=== PATIENT | male | born 1955 | race Caucasian/White ===

== ENCOUNTER 2018-05-22 12:15 | Emergency (ER) | payer OTHER ==
[2018-05-22 14:48] LABS: PLATELET COUNT 428 10^3/uL (150-400)
--- NOTE | 2018-05-22 14:52 | EDPHY ---
H & P Stated Complaint: dizzy, disoriented Time Seen by Provider: 05/22/18 14:00 HPI/ROS: CHIEF COMPLAINT: Dizzy, off balance HISTORY OF PRESENT ILLNESS: This is a 62-year-old male who presents with 2 days of feeling slightly dizzy/lightheaded and off balance. He noticed this yesterday and actually fell against a wall. He spoke with his caregiver at that time and was advised to come to the emergency department the chose not to do so. Today he had an appointment with his urologist, which she cap. He then came to the emergency department because of continued lightheadedness and a feeling of being slightly "fuzzy". He notices that when he is walking veers off in one direction and sometimes stumbles. No headache. No recent trauma. REVIEW OF SYSTEMS: A ten system review of systems was performed and is negative with the exception of the items mentioned in the HPI. Past medical history: 1. Back pain with history of opiate dependence now on Suboxone for the past 2 months 2. TIA (seen on MRI) 3. Possible cluster headache 4. Asthma 5. Heartburn 6. Tobacco abuse Past surgical history: 1. Hiatal hernia 2. Left inguinal hernia repair 3. Surgery and pulmonary bleb/pneumothorax 4. Left right rotator cuff repairs 5. Right knee arthroscopy 6. Ganglion cyst on hand 7. Lymph node removal Family history: Social history: History of opiate dependence not Suboxone. He smokes 1 pack cigarettes a day. He is retired. 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 General Appearance: Alert. Vital signs reviewed. Blood pressure 147/91, heart rate 111 at triage. Eyes: Pupils equal and round, no conjunctival injection, no discharge. Anicteric. ENT, Mouth: Mucous membranes are moist, no oropharyngeal erythema or edema. Neck: No lymphadenopathy, supple. Respiratory: Lungs are clear to auscultation; no wheezes, rales, or rhonchi. Cardiovascular: Regular rate and rhythm; no murmur, rub, or gallop. Gastrointestinal: Abdomen is soft and nontender, no masses or organomegaly, bowel sounds normal. Skin: Warm and dry, no rashes on exposed skin, normal color. Back: Nontender to palpation over the thoracolumbar spine. No CVAT. Extremities: No lower extremity edema, no calf tenderness or swelling. Neurological: Alert and oriented. NIHSS 3. Cranial nerves II through XII are examined and are intact (visual acuity not tested). Strength is 5 for over 5 over 5 right upper and lower extremity, 5/5 left upper and lower extremity with testing of all major motor groups. Right upper extremity drift. Sensation is intact to light touch over all 4 extremities. [id number] is performed with some past pointing on the right. Gait is somewhat unsteady with falling to the right. Sways during Romberg test. Psychiatric: Slightly flat affect. - Personal History Current Tetanus/Diphtheria Vaccine: Yes Current Tetanus Diphtheria and Acellular Pertussis (TDAP): Yes - Medical/Surgical History Hx Asthma: Yes Hx Chronic Respiratory Disease: Yes Hx Diabetes: No Hx Cardiac Disease: No Hx Renal Disease: No Hx Cirrhosis: No Hx Alcoholism: No Hx HIV/AIDS: No Hx Splenectomy or Spleen Trauma: No Other PMH: TIA, opiate abuse, - Social History Smoking Status: Heavy smoker Constitutional: Initial Vital Signs Temperature (C) 36.8 C 05/22/18 12:24 Heart Rate 111 H 05/22/18 12:24 Respiratory Rate 16 05/22/18 12:24 Blood Pressure 147/91 H 05/22/18 12:24 O2 Sat (%) 95 05/22/18 12:24 O2 Delivery Mode Room Air Allergies/Adverse Reactions: lorazepam [From Ativan] Allergy (Verified 05/22/18 12:22) Home Medications: Medication Instructions Recorded Albuterol 05/22/18 Flomax 05/22/18 Gabapentin 05/22/18 Prilosec 05/22/18 Suboxone 8 mg-2 mg SL Film 05/22/18 Medical Decision Making - Diagnostics EKG Interpretation: 12 lead EKG is interpreted in [place] by emergency department physician. No acute ischemic findings. Sinus rhythm at 95. ED Course/Re-evaluation: Patient with right upper and lower extremity weakness and gait instability. He reports a history of prior TIA. Symptoms have been present since yesterday morning (over [address] shows no evidence of acute stroke. Will proceed with MRI. I discussed the findings on the head CT with the patient. I have recommended admission, regardless of the results on the MRI scan. He was re-examined at 3: 20 p.m. and has continued ongoing right-sided weakness. NIHSS 3. He is adamant that he does not want to be hospitalized. He ultimately agreed that if the MRI showed evidence of a stroke he would stay in the hospital, but otherwise he wanted to return home. He understands that if the MRI does not explain his symptoms he is at risk of worsening with permanent neurologic deficit and even at risk of . He is capable of making his own medical decisions. I reviewed his EKG. He has negative troponin. I do not think that this is a cardiac event. His white blood cell count is very mildly elevated. I have not found evidence of an infection. Electrolytes are normal. MRI does not show evidence of acute stroke. There is some microvascular disease and sinusitis, no other abnormalities. I have reviewed the MRI findings with the patient. I have offered him hospitalization for further evaluation of his right-sided weakness. He continues to refuse hospitalization and has signed a form stating that he is leaving against medical advice. He understands that the etiology of his symptoms has not been discovered. He understands that he could worsen and even . Differential Diagnosis: Weakness including but not limited to electrolyte abnormality, depression, anxiety, CVA, spinal cord abnormality, and infectious causes. - Data Points Laboratory Results: Laboratory Results 05/22/18 14:10 05/22/18 14:10 Point of Care Test Results: Chemistry 05/22/18 14:13 POC Troponin I 0.01 ng/mL ng/mL (0.00-0.08) Departure - Departure Disposition: Against Medical Advice Clinical Impression: Weakness, Balance problem Condition: Fair Instructions: Weakness (ED) Additional Instructions: As you know, it is not clear what is causing you to be off balance when walking and have right-sided weakness. I recommend that you follow up with her primary care provider and with a neurologist. I am referring you to a neurologist within our system but a understand that you received your care elsewhere. It is fine for you to see a neurologist elsewhere and I recommend that you call your primary care provider for recommendation. I think that you should be re- evaluated early next week. If you worsen in any way--headache, more trouble walking, increasing weakness, numbness, confusion, change in vision--you should call 911 and be re-evaluated immediately. You're being given copies of your CT scan, MRI scan, laboratory studies, and EKG. Referrals: Cosmo Robertson DO [Medical Doctor] - As per Instructions
[2018-05-22 16:44] VITALS: BP 120/88
--- NOTE | 2018-05-22 20:52 | CPEKG ---
Test Reason : OPEN Blood Pressure : / mmHG Vent. Rate : 095 BPM Atrial Rate : 095 BPM P-R Int : 141 ms QRS Dur : 085 ms QT Int : 346 ms P-R-T Axes : 054 002 010 degrees QTc Int : 435 ms Sinus rhythm Abnormal R-wave progression, early transition Confirmed by Jasmin Hernández ([id number]) on 05/22/2018 8:51:41 PM Referred By: Confirmed By:Jasmin Hernández
== END 2018-05-22 17:05 | disposition left against medical advice (07) ==
DX: R53.1 Weakness (principal); R26.89 Other abnormalities of gait and mobility
CPT/HCPCS: 84484-ER